=== PATIENT | male | born 1955 | race Caucasian/White ===

== ENCOUNTER → 2022-07-12 | Outpatient (CLI) | payer OTHER ==
--- NOTE | 2022-07-12 14:33 | DIREP ---
PROCEDURE:XRAY KNEE 2 VWS-RT COMPARISON:None. INDICATIONS:Z00.00 HISTORY AND PHYSICAL EVALUATION FINDINGS: BONES:No fracture identified. Degenerative change, including mild marginal osteophytosis and subchondral sclerosis. JOINTS:Mild medial femorotibial joint space narrowing. No evidence of dislocation. SOFT TISSUES:Normal. OTHER:No additional findings. CONCLUSION: 1. No fracture identified. 2. Degenerative change. Dictated by: Yosi Hoffman MD on 07/12/2022 at 02:31 PM
== END | disposition home or self-care (01) ==
LOC: RAD 10:37
PROVIDERS: ATTEND Nurse Practitioner
DX: M17.11 Unilateral primary osteoarthritis, right knee (principal); Z00.00 Encounter for general adult medical examination without abnormal findings; M25.761 Osteophyte, right knee
CPT/HCPCS: 73560